=== PATIENT | female | born 1995 | race Caucasian/White ===

== ENCOUNTER 2018-03-31 10:15 | Emergency (ER) | payer MEDICAID ==
[~2018-03-31] VITALS: Ht 149.9 cm; Wt 59.0 kg
[2018-03-31 10:18] VITALS: Ht 149.9 cm; Wt 59.0 kg
[2018-03-31 10:45] VITALS: BP 134/81
[2018-03-31 10:56] LABS: microscopic required? YES; urine erythrocyte 3+ (NEGATIVE)
[2018-03-31 11:27] LABS: BASOPHIL % 0.4 % (0-2); PLATELET COUNT 317 x10^3mcL (130-400); RED CELL DISTRIBUTION WIDTH 12.8 % (11.5-14.5)
[2018-03-31 11:42] LABS: CALCIUM 8.8 mg/dL (8.5-10.1); CARBON DIOXIDE 27.3 mmol/L (21-32); CHLORIDE SERUM 102 mmol/L (98-107); CREATININE SERUM 0.8 mg/dL (0.6-1.0); GFR1 > 60 mL/min; GLUCOSE SERUM 103 mg/dL (74-106); POTASSIUM SERUM 3.5 mmol/L (3.5-5.1); SODIUM SERUM 138 mmol/L (136-145)
[2018-03-31 11:47] LABS: ALBUMIN 4.4 g/dL (3.4-5.0); ALKALINE PHOSPHATASE 91 U/L (46-116); ALT/SGPT 21 U/L (14-59); AST/SGOT 21 U/L (15-37); BILIRUBIN TOTAL 0.69 mg/dL (0.20-1.00); LIPASE 69 IU/L (73-393)
[2018-03-31 12:20] LABS: TOTAL PROTEIN, SERUM 8.3 g/dL (6.4-8.2)
== END 2018-03-31 12:36 | disposition home or self-care (01) ==
LOC: ED 10:15
PROVIDERS: Emergency Medicine
DX: N20.1 Calculus of ureter (principal)
CPT/HCPCS: J1885; Q0162